=== PATIENT | male | born 1960 | race Caucasian/White ===

== ENCOUNTER 2022-03-06 10:39 | Emergency (ER) | payer OTHER ==
[~2022-03-06] VITALS: Ht 172.7 cm; Wt 81.6 kg
--- NOTE | 2022-03-06 10:54 | NUR ---
[facility] OFFICERS FOR MEDICAL CLEARANCE. DENIES SI/HI. DENIES AUDITORY/VISUAL HALLUCINATIONS. HX OF SI WITH NO PLAN OR ATTEMPT 10 AGO. THE PATIENT IS ALERT AND ORIENTED X4. IN ROOM AIR AND DENIES SOB. RESPIRATION REGULAR AND UNLABORED. WILL CONTINUE TO MONITOR THE PATIENT. [employer] OFFICERS WITH THE PATIENT.
[2022-03-06 11:42] VITALS: BP 149/83
--- NOTE | 2022-03-06 11:43 | NUR ---
Patient discharged to law enforcement in stable condition. Officer Zeyad #[id number]. Written and verbal after care instructions given. Patient verbalizes understanding of instruction.
== END 2022-03-06 11:45 ==
LOC: ER 10:40
DX: Z02.89 Encounter for other administrative examinations (principal); Z60.2 Problems related to living alone